=== PATIENT | female | born 1990 | race African-American/Black ===

== ENCOUNTER 2017-06-17 08:46 | Emergency (ER) | payer SELFPAY | END 2017-06-17 09:24 | disposition home or self-care (01) | LOC: ERS 08:46 | DX: K02.9 Dental caries, unspecified (principal) | CPT/HCPCS: 99282 ==

== ENCOUNTER 2017-07-27 17:38 | Emergency (ER) | payer SELFPAY ==
[2017-07-27] MEDS ORDERED: Dexamethasone 4 MG TAB ONE (20:20)
== END 2017-07-27 20:35 | disposition home or self-care (01) ==
LOC: ERS 17:38
DX: J02.9 Acute pharyngitis, unspecified (principal)
CPT/HCPCS: 36415; 87040; 87081; 87430; 99283; J8540

== ENCOUNTER 2019-11-13 02:34 | Emergency (ER) | payer SELFPAY | END 2019-11-13 02:45 | disposition home or self-care (01) | LOC: ERS 02:34 | DX: K02.9 Dental caries, unspecified (principal) | CPT/HCPCS: 99282 ==

== ENCOUNTER 2019-11-14 17:58 | Emergency (ER) | payer SELFPAY ==
[2019-11-14] MEDS ORDERED: Ondansetron ODT 4 MG TAB ONE (19:58)
[2019-11-14] MEDS ORDERED: Dexamethasone 4 mg/ml Vial ONE (22:35)
== END 2019-11-14 22:39 | disposition home or self-care (01) ==
LOC: ERS 17:58
DX: K02.9 Dental caries, unspecified (principal); Z79.899 Other long term (current) drug therapy
CPT/HCPCS: 99282; J1100; Q0162

== ENCOUNTER 2021-04-17 11:09 | Emergency (ER) | payer SELFPAY ==
[2021-04-17] MEDS ORDERED: Dexamethasone 10 MG/ML VIAL ONE (13:12)
== END 2021-04-17 13:15 | disposition home or self-care (01) ==
LOC: ERS 11:09
DX: B34.9 Viral infection, unspecified (principal); J02.9 Acute pharyngitis, unspecified; F17.210 Nicotine dependence, cigarettes, uncomplicated; Z20.822 Contact with and (suspected) exposure to COVID-19
CPT/HCPCS: 87081; 87430; 99283; J1100